=== PATIENT | male | born 1955 | race African-American/Black ===

== ENCOUNTER 2017-11-05 13:08 | Inpatient (IN) | payer MEDICAID ==
[~2017-11-05] VITALS: Ht 154.9 cm; Wt 40.8 kg
[2017-11-05 13:13] VITALS: BP 146/96
[2017-11-05] MEDS ORDERED: ACETAMINOPHEN 650 MG SUPP RC ONE (13:42)
[2017-11-05 14:16] LABS: MEAN CORPUSCULAR HEMOGLOBIN 30 pg (27-31); MEAN CORPUSCULAR HGB CONC 33 g/dL (33-37); MEAN CORPUSCULAR VOLUME 89 fL (80-94); PLATELET COUNT (AUTO) 165 K/uL (140-450); RED CELL DISTRIBUTION WIDTH 14.1 % (11.6-13.7); WHITE BLOOD COUNT (AUTO) 18.4 K/uL (4.8-10.8)
[2017-11-05 14:30] LABS: PROTHROMBIN TIME 10.3 secs (10.8-13.4)
[2017-11-05 14:31] LABS: ANION GAP 10.9 (8-16); CARBON DIOXIDE 32.6 mmol/L (21-32); CREATININE 1.1 mg/dL (0.7-1.3); POTASSIUM 4.5 mmol/L (3.5-5.1)
[2017-11-05 14:32] LABS: LYMPHOCYTES % (MANUAL) 14 % (20-46); MONOCYTES % (MANUAL) 6 % (5-12)
[2017-11-05 14:37] LABS: BILIRUBIN,URINE NEGATIVE (NEGATIVE); BLOOD, URINE 2+ (NEGATIVE); COLOR,URINE YELLOW (YELLOW); LEUKOCYTE ESTERASE ,URINE 3+ (NEGATIVE); NITRITE, URINE NEGATIVE (NEGATIVE); UGLUCOSE NEGATIVE (NEGATIVE)
[2017-11-05 14:42] LABS: APPEARANCE,URINE CLOUDY (CLEAR)
[2017-11-05 14:45] LABS: ALBUMIN 3.6 g/dL (3.4-5.0); TOTAL BILIRUBIN 0.5 mg/dL (0.0-1.0)
[2017-11-05 14:46] LABS: ACETAMINOPHEN < 0.5 ug/ml (10-30); SALICYLATE < 2.8 mg/dL (2.8-20.0)
[2017-11-05 14:47] LABS: BARBITURATE, URINE NEG. ng/ml (NEG <=200); BENZODIAZEPINE, URINE NEG. ng/mL (NEG <=200); CANNABINOID, URINE NEG. ng/mL (NEG <=50); COCAINE, URINE NEG. ng/mL (NEG <=300); OPIATE, URINE NEG. ng/mL (NEG <=2000); PHENCYCLIDINE SCREEN,URINE NEG. ng/mL (NEG <=25)
[2017-11-05 15:08] LABS: RBC,URINE 11-20 (MOD) /HPF (0-5); WBC,URINE TOO MANY TO COUNT /HPF (0-5)
[2017-11-05] MEDS ORDERED: LEVOFLOXACIN 500 MG/D5W PREMIX 100 ML IV ONE (15:15)
[2017-11-05] MEDS ORDERED: IBUPROFEN 400 MG TAB GT ONE (17:45)
[2017-11-05 20:00] VITALS: BP 97/59
[2017-11-05] MEDS ORDERED: ACETAMINOPHEN 325 MG TAB PO PRN (23:10)
[2017-11-05] MEDS ORDERED: HYDROcodone/APAP 5/325 MG 1 TAB TAB PO PRN (23:10)
[2017-11-05] MEDS: DEXT 5% /NACL 0.9% 1,000 ML IV SCH ×2 (23:10→23:46)
[2017-11-05] MEDS ORDERED: HYDROcodone/APAP 5/325 MG 1 TAB TAB GT PRN (23:40)
[2017-11-06] VITALS (15 sets, daily range): BP systolic 82–166; BP diastolic 52–96
[2017-11-06] MEDS ORDERED: TRA200 GT (04:45)
[2017-11-06] MEDS ORDERED: AMLO10TA GT (04:45)
[2017-11-06] MEDS ORDERED: LISI10TA11 GT (04:45)
[2017-11-06] MEDS ORDERED: PRON INH (04:45)
[2017-11-06] MEDS ORDERED: KEP500L GT (04:45)
[2017-11-06 07:23] LABS: HEMATOCRIT 38.2 % (36-52); HEMOGLOBIN 12.8 g/dL (12.0-18.0); MEAN CORPUSCULAR HEMOGLOBIN 30 pg (27-31); MEAN CORPUSCULAR HGB CONC 33 g/dL (33-37); MEAN CORPUSCULAR VOLUME 90 fL (80-94); PLATELET COUNT (AUTO) 150 K/uL (140-450); RED BLOOD CELL COUNT(AUTO) 4.25 MIL/uL (4.20-6.10); RED CELL DISTRIBUTION WIDTH 14.2 % (11.6-13.7); WHITE BLOOD COUNT (AUTO) 13.7 K/uL (4.8-10.8)
[2017-11-06 07:40] LABS: CARBON DIOXIDE 31.7 mmol/L (21-32); CREATININE 1.3 mg/dL (0.7-1.3); POTASSIUM 3.7 mmol/L (3.5-5.1)
[2017-11-06 08:17] LABS: LYMPHOCYTES % (MANUAL) 12 % (20-46); MONOCYTES % (MANUAL) 9 % (5-12)
[2017-11-06] MEDS: ACETAMINOPHEN 325 MG TAB GT PRN ×3 (08:55→19:38)
[2017-11-06] MEDS ORDERED: LISINOPRIL 10 MG TAB GT SCH (11:03)
[2017-11-06] MEDS ORDERED: amLODIPine 5 MG TAB GT SCH (11:04)
[2017-11-06] MEDS ORDERED: NACL 0.9% 250 ML IV SCH (11:10)
[2017-11-06] MEDS ORDERED: LEVOFLOXACIN 750 MG/D5W PREMIX 150 ML IV SCH (11:20)
[2017-11-06] MEDS: LABETALOL 100 MG TAB GT SCH ×2 (12:21→19:46)
[2017-11-06] MEDS ORDERED: LEVOFLOXACIN 500 MG/D5W PREMIX 100 ML IV SCH (15:00)
[2017-11-06] MEDS ORDERED: ONDANSETRON 4 MG/2 ML VIAL IVP PRN (15:20)
[2017-11-06] MEDS: DEXT 5% /NACL 0.9% 1,000 ML IV SCH (15:45)
[2017-11-06] MEDS ORDERED: levETIRAcetam 100 MG/ML ORASYR GT SCH (21:00)
[2017-11-06] MEDS ORDERED: METOPROLOL 25 MG TAB GT SCH (22:00)
[2017-11-06] MEDS ORDERED: ALBUTEROL SULFATE/IPRATROPIU 3 ML SOL IH ONE (22:39)
[2017-11-06] MEDS ORDERED: ALBUTEROL SULFATE/IPRATROPIU 3 ML SOL IH PRN (22:40)
[2017-11-06] MEDS ORDERED: METOPROLOL 25 MG TAB ONE (22:58)
[2017-11-07] VITALS: BP 99/58
[2017-11-07] MEDS: ACETAMINOPHEN 325 MG TAB GT PRN (00:43)
[2017-11-07] MEDS ORDERED: ETOMIDATE 20 MG/10 ML VIAL IVP ONE (00:50)
[2017-11-07] MEDS ORDERED: SUCCINYLCHOLINE CHLORIDE 200 MG/10 ML VIAL IVP ONE (00:50)
[2017-11-07 01:32] VITALS: BP 100/45
[2017-11-07 02:00] VITALS: BP 70/53
[2017-11-07] MEDS ORDERED: NOREPINEPHRINE 4 MG in DEXTROSE 5% 250 ML IV PRN (02:15)
[2017-11-07] MEDS ORDERED: NOREPINEPHRINE 4 MG/4 ML VIAL IV ONE (02:37)
[2017-11-07 03:15] VITALS: BP 72/33
[2017-11-07] MEDS: DEXT 5% /NACL 0.9% 1,000 ML IV SCH (03:15)
[2017-11-07 03:25] VITALS: BP 72/33
[2017-11-07 03:30] VITALS: BP 51/31
[2017-11-07] MEDS ORDERED: amLODIPine 5 MG TAB GT SCH (09:00)
[2017-11-07] MEDS ORDERED: LISINOPRIL 10 MG TAB GT SCH (09:00)
[2017-11-07] MEDS ORDERED: LEVOFLOXACIN 500 MG/D5W PREMIX 100 ML IV SCH (09:00)
== END 2017-11-07 04:37 | DRG 720 ==
LOC: MED 13:08 → MTU 17:16 → MIC 11-06 09:15
PROVIDERS: ADMIT Preventive Medicine Preventive Medicine/Occupational Environmental Medicine; ATTEND Preventive Medicine Preventive Medicine/Occupational Environmental Medicine
PROC: 5A09357 Assistance with Respiratory Ventilation, Less than 24 Consecutive Hours, Continuous Positive Airway Pressure (ICD-10-PCS; principal; 2017-11-06)
PROC: 5A12012 Performance of Cardiac Output, Single, Manual (ICD-10-PCS; 2017-11-06)
DX: A41.9 Sepsis, unspecified organism (principal); I46.9 Cardiac arrest, cause unspecified; J18.9 Pneumonia, unspecified organism; I69.351 Hemiplegia and hemiparesis following cerebral infarction affecting right dominant side; E83.52 Hypercalcemia; R13.10 Dysphagia, unspecified; Z93.1 Gastrostomy status; I69.320 Aphasia following cerebral infarction; N18.9 Chronic kidney disease, unspecified; N39.0 Urinary tract infection, site not specified; R73.9 Hyperglycemia, unspecified; Z98.890 Other specified postprocedural states
CPT/HCPCS: 36415; 36600; 70450; 71010; 80048; 80053; 80305; 81001; 81025; 82803; 83605; 83880; 84484; 85025; 85610; 85730; 87040; 87070; 87081; 87086; 87186; 87205; 92950; 93005; 94002; 94640; 94660; 96365; 99285; C1758; G0480; G0482; J1956; J2405; J3490; J7030; J7042; J7060; J7620; Q0092